=== PATIENT | male | born 1980 | race Caucasian/White ===

== ENCOUNTER 2016-08-16 23:29 | Emergency (ER) | payer MEDICAID ==
[~2016-08-16] VITALS: Ht 160 cm; Wt 98.1 kg
[~2016-08-16 23:29] MED LIST: AMLO5TAB2 PO
[2016-08-16 23:30] VITALS: BP 152/113
== END 2016-08-17 00:18 | disposition home or self-care (01) ==
LOC: ED 08-17 00:12
DX: H66.92 Otitis media, unspecified, left ear (principal); I10 Essential (primary) hypertension
CPT/HCPCS: 99283

== ENCOUNTER 2016-08-17 07:43 | Emergency (ER) | payer MEDICAID ==
[~2016-08-17] VITALS: Ht 162.6 cm; Wt 97.3 kg
[2016-08-17 07:47] VITALS: BP 159/98
[2016-08-17] MEDS ORDERED: ONDANSETRON ODT 4 MG PO ONE (08:30)
[2016-08-17] MEDS ORDERED: HYDROmorphone 1 MG/ML, 1ML IM ONE (08:30)
[2016-08-17] MEDS ORDERED: ONDANSETRON ODT 4 MG ONE (08:33)
[2016-08-17] MEDS ORDERED: HYDROmorphone 1 MG/ML, 1ML ONE (08:33)
[2016-08-17] MEDS ORDERED: BACITRACIN ZINC OINT 500U/GM, 0.9 GM ONE (09:00)
[2016-08-17] MEDS ORDERED: BACITRACIN ZINC OINT 500U/GM, 0.9 GM TP ONE (09:00)
== END 2016-08-17 12:10 | disposition home or self-care (01) ==
LOC: ED 11:34
DX: H92.22 Otorrhagia, left ear (principal); I10 Essential (primary) hypertension
CPT/HCPCS: 96372; 99283; J1170; Q0162